=== PATIENT | male | born 1990 | race Caucasian/White ===

== ENCOUNTER 2016-08-13 15:15 | Emergency (ER) | payer MEDICAID, OTHER ==
[2016-08-13 15:47] VITALS: BP 133/81; PULSE 81; RESP 20; O2SAT 99
--- NOTE | 2016-08-13 18:46 | ED.REPORT ---
HPI-Psychiatric Illness Date of Service Aug 13, 2016 ED Provider: David Peterson PA-C Sydnee is a 26-year-old male with chief complaint of substance abuse. He presents emergency department seeking drug treatment. He states that he has no where to live and would like treatment somewhere. Reports using cocaine up to a couple weeks ago and methamphetamines as recently as 2 days ago. He admits using marijuana today. Denies alcohol use. Denies medical history or physical complaints. Negative review of systems Nursing Notes Stated Complaint: DETOX Chief Complaint: Substance Abuse Nursing Notes Reviewed: Yes Allergies: Coded Allergies: No Known Allergies (Unverified , 08/13/16) General Time Seen by MD: 18:33 Chief Complaint Other (drug abuse) Risk-Psychiatric Illness Suicide Risk Stratification Suicide Risk Factors - Adult: : Substance abuseNo: Access to firearms, Alcohol use, Close associate suicide, Family Hx of Suicide, Previous attempt, Prior psych admission RF Statements: Risk factors reviewed Past Medical History Past Medical History Denies Social History Admits cocaine and methamphetamine use. Alcohol Use: Denies alcohol use Review of Systems General: Denies fever, chills, malaise. HEENT: Denies congestion, headache, sore throat. Respiratory: Denies dyspnea, cough, shortness of breath, wheezing. Cardiovascular: Denies chest pain, palpitations. Gastrointestinal: Denies vomiting, diarrhea, abdominal pain. Genitourinary: Denies frequency, urgency, dysuria, hematuria. Otherwise as noted in HPI. Physical Exam General: Well appearing, well developed, well nourished, no acute distress. Head: Atraumatic, normocephalic. Eyes: No scleral icterus or injection. No discharge. Vision grossly intact. ENT: Voice clear, hearing grossly intact. Respiratory: Regular rate and rhythm. Breath sounds present, clear to auscultation and equal bilaterally. No respiratory distress. No increased work of breathing, speaks in complete sentences. Cardiovascular: Regular rate and rhythm, without murmur, gallop or rub. No pedal edema. Gastrointestinal: Abdomen flat and non-tender without guarding or rebound. Bowel sounds normoactive. Skin: Warm and dry. Neurological: Grossly nonfocal. Psychological: Alert and oriented. Speech appropriate, linear and logical. Behavior appropriate. Initial Vital Signs Vital Signs (First) Date Time Temp Pulse Resp B/P Pulse Ox O2 Delivery O2 Flow Rate FiO2 08/13/16 15:47 36.4 81 20 133/81 99 Room Air Initial VS: Reviewed, Vital signs normal Interpretation & Diagnostics Lab Results Interpretation Test 08/13/16 16:43 Hold Urine Received (Received) Re-Eval/Medical Decision Med Decision/Clinical Course 26-year-old homeless male presents seeking treatment for cocaine and methamphetamine abuse. History and physical examination revealed of medical instability however [facility] He met with [facility] [facility], was offered assessment for future admission prior to discharge. He declined. Advised to contact [facility] to screen for admission himself. Denies suicidal ideation, is clinically sober. Stable and safe for discharge. Discharged with referral for primary care follow-up and emergency return precautions. Patient understands and agrees with the plan. Discharge & Departure Impression: Primary Impression: Substance abuse )( Condition at Discharge: No danger to self, No danger to others, No suicidal ideation, No homicidal ideation Disposition: Home Discharge Condition All VS Reviewed: Yes Condition: Stable Patient Instructions: Methamphetamine Abuse (ED) Additional Instructions: Evaluation for drug rehabilitation in the emergency department. History and physical examination revealed normal medical instability. Unfortunately there [facility] no [facility]. Liver stable and safe to be discharged to home. [facility]. I will provide referral for a primary care provider, please contact them to establish care. Return to the emergency department for new or worsening symptoms including chest pain, shortness of breath, suicidal ideation. Referrals: [facility] Provider for APC: Portillo Rodriguez MD, Seth PA-C Aug 13, 2016 18:46
== END 2016-08-13 22:31 | disposition home or self-care (01) ==
LOC: MERGE 15:15 → SED 15:15
DX: F15.10 Other stimulant abuse, uncomplicated (principal); F14.10 Cocaine abuse, uncomplicated; Z59.0 Homelessness